=== PATIENT | female | born 1960 | race Caucasian/White ===

== ENCOUNTER → 2016-09-09 | Outpatient (CLI) | payer OTHER | LOC: LAB 14:51 | DX: Z01.419 Encounter for gynecological examination (general) (routine) without abnormal findings (principal) ==

== ENCOUNTER → 2016-09-25 | Outpatient (CLI) | payer OTHER | LOC: MAMMO 13:49 | DX: Z12.31 Encounter for screening mammogram for malignant neoplasm of breast (principal); Z01.419 Encounter for gynecological examination (general) (routine) without abnormal findings | CPT/HCPCS: G0202 ==

== ENCOUNTER → 2018-01-07 | Outpatient (CLI) | payer OTHER | LOC: MAMMO 16:00 | DX: Z12.31 Encounter for screening mammogram for malignant neoplasm of breast (principal) ==

== ENCOUNTER → 2018-02-17 | Outpatient (CLI) | payer OTHER | LOC: RAD 13:00 | DX: R56.9 Unspecified convulsions (principal) ==

== ENCOUNTER → 2019-06-22 | Outpatient (CLI) | payer OTHER ==
[2019-06-22 12:13] LABS: EOS # 0.1 (0.04-0.40); EOS % 1.5 % (1.0-5.0); HEMATOCRIT 39.9 % (37.0-47.0); HEMOGLOBIN 13.7 g/dL (12.5-16.0); LYMPH# 1.5 (1.50-4.00); MEAN CELL VOLUME 92 fl (78-100); MEAN CORPUSCULAR HEMOGLOBIN 32 pg (27-31); MEAN CORPUSCULAR HGB CONC 34 g/dL (33-37); MONO # 0.6 (0.20-0.80); NEU # 3.3 (1.40-6.50); PLATELET COUNT 239 K/mm3 (130-400); RED BLOOD COUNT 4.33 M/mm3 (4.10-5.30); RED CELL DISTRIBUTION WIDTH 11.7 % (11.5-14.5); WHITE BLOOD COUNT 5.5 K/mm3 (4.8-10.8)
[2019-06-22 12:19] LABS: ALBUMIN 4.3 g/dL (3.5-5.0); POTASSIUM 4.1 mmol/L (3.5-5.1)
[2019-06-22 12:20] LABS: CALCIUM 9.3 mg/dL (8.3-10.5)
[2019-06-22 12:21] LABS: TOTAL PROTEIN 7.1 g/dL (6.4-8.3)
[2019-06-22 12:23] LABS: TOTAL BILIRUBIN 0.4 mg/dL (0.2-1.2)
== END ==
LOC: LAB 11:55
PROVIDERS: Family Medicine
DX: Z00.00 Encounter for general adult medical examination without abnormal findings (principal); E78.5 Hyperlipidemia, unspecified

== ENCOUNTER → 2020-07-05 | Outpatient (CLI) | payer OTHER ==
[2020-07-05 15:48] LABS: BASO # 0.1 (0.02-0.10); EOS # 0.1 (0.04-0.40); EOS % 0.6 % (1.0-5.0); HEMATOCRIT 39.9 % (37.0-47.0); HEMOGLOBIN 13.5 g/dL (12.5-16.0); LYMPH# 1.6 (1.50-4.00); MEAN CELL VOLUME 91 fl (78-100); MEAN CORPUSCULAR HEMOGLOBIN 31 pg (27-31); MEAN CORPUSCULAR HGB CONC 34 g/dL (33-37); MEAN PLATELET VOLUME 9.7 fl (7.4-10.4); MONO # 0.7 (0.20-0.80); NEU # 5.5 (1.40-6.50); PLATELET COUNT 271 K/mm3 (130-400); RED BLOOD COUNT 4.38 M/mm3 (4.10-5.30); RED CELL DISTRIBUTION WIDTH 12.2 % (11.5-14.5); WHITE BLOOD COUNT 7.9 K/mm3 (4.8-10.8)
[2020-07-05 15:55] LABS: POTASSIUM 3.6 mmol/L (3.5-5.1)
[2020-07-05 15:56] LABS: ALBUMIN 4.8 g/dL (3.5-5.0)
[2020-07-05 15:57] LABS: CALCIUM 9.7 mg/dL (8.3-10.5)
[2020-07-05 15:58] LABS: TOTAL PROTEIN 7.7 g/dL (6.4-8.3)
[2020-07-05 16:00] LABS: TOTAL BILIRUBIN 0.8 mg/dL (0.2-1.2)
== END ==
LOC: LAB 15:36
PROVIDERS: Family Medicine
DX: Z00.00 Encounter for general adult medical examination without abnormal findings (principal); E78.5 Hyperlipidemia, unspecified

== ENCOUNTER → 2020-07-11 | Outpatient (CLI) | payer OTHER | LOC: MAMMO 14:26 | DX: Z12.31 Encounter for screening mammogram for malignant neoplasm of breast (principal) ==

== ENCOUNTER → 2020-07-29 | Outpatient (CLI) | payer OTHER | LOC: LAB 13:27 | DX: U07.1 COVID-19 (principal) ==

== ENCOUNTER → 2021-03-27 | Outpatient (CLI) | payer OTHER | LOC: RAD 16:19 | DX: M47.812 Spondylosis without myelopathy or radiculopathy, cervical region (principal) ==

== ENCOUNTER → 2021-04-06 | Outpatient (CLI) | payer OTHER ==
[2021-04-06 12:09] LABS: ALBUMIN 4.4 g/dL (3.5-5.0); POTASSIUM 4.5 mmol/L (3.5-5.1)
[2021-04-06 12:10] LABS: CALCIUM 10.2 mg/dL (8.3-10.5)
[2021-04-06 12:12] LABS: TOTAL PROTEIN 7.8 g/dL (6.4-8.3)
[2021-04-06 12:13] LABS: TOTAL BILIRUBIN 0.6 mg/dL (0.2-1.2)
== END ==
LOC: LAB 11:36
PROVIDERS: Internal Medicine Gastroenterology
DX: K76.89 Other specified diseases of liver (principal)

== ENCOUNTER 2021-04-19 10:02 | Outpatient (RCR) | payer OTHER | END 2021-07-18 | disposition home or self-care (01) | LOC: PT | DX: M54.2 Cervicalgia (principal) ==

== ENCOUNTER → 2021-07-02 | Outpatient (CLI) | payer OTHER ==
[2021-07-02 14:16] LABS: BASO # 0.03 K/mm3 (0.02-0.10); EOS # 0.04 K/mm3 (0.04-0.40); EOS % 0.7 % (1.0-5.0); HEMATOCRIT 38.8 % (37.0-47.0); HEMOGLOBIN 13.3 g/dL (12.5-16.0); LYMPH# 1.36 K/mm3 (1.50-4.00); MEAN CELL VOLUME 94 fl (78-100); MEAN CORPUSCULAR HEMOGLOBIN 32 pg (27-31); MEAN CORPUSCULAR HGB CONC 34 g/dL (33-37); MEAN PLATELET VOLUME 9.6 fl (7.4-10.4); NEU # 3.89 K/mm3 (1.40-6.50); PLATELET COUNT 236 K/mm3 (130-400); RED BLOOD COUNT 4.11 M/mm3 (4.10-5.30); RED CELL DISTRIBUTION WIDTH 11.6 % (11.5-14.5); WHITE BLOOD COUNT 5.9 K/mm3 (4.8-10.8)
[2021-07-02 14:27] LABS: ALBUMIN 4.3 g/dL (3.5-5.0); POTASSIUM 3.8 mmol/L (3.5-5.1)
[2021-07-02 14:28] LABS: CALCIUM 9.4 mg/dL (8.3-10.5)
[2021-07-02 14:29] LABS: TOTAL PROTEIN 6.8 g/dL (6.4-8.3)
[2021-07-02 14:31] LABS: TOTAL BILIRUBIN 0.8 mg/dL (0.2-1.2)
== END ==
LOC: LAB 13:54
PROVIDERS: Family Medicine
DX: Z00.00 Encounter for general adult medical examination without abnormal findings (principal); E78.5 Hyperlipidemia, unspecified

== ENCOUNTER → 2021-07-18 | Outpatient (CLI) | payer OTHER | LOC: MAMMO 09:15 → RAD 09:15 → MAMMO 09:32 | DX: R55 Syncope and collapse (principal); R10.32 Left lower quadrant pain | CPT/HCPCS: Q9967 ==

== ENCOUNTER → 2021-09-24 | Outpatient (CLI) | payer OTHER | LOC: RAD 14:14 | DX: S42.251A Displaced fracture of greater tuberosity of right humerus, initial encounter for closed fracture (principal); W10.9XXA Fall (on) (from) unspecified stairs and steps, initial encounter ==

== ENCOUNTER 2021-10-30 13:02 | Outpatient (RCR) | payer OTHER | END 2021-11-08 | disposition home or self-care (01) | LOC: PT | DX: M25.511 Pain in right shoulder (principal) ==

== ENCOUNTER 2021-11-15 13:30 | Outpatient (RCR) | payer OTHER | END 2021-12-08 | disposition home or self-care (01) | LOC: PT | DX: M25.511 Pain in right shoulder (principal) ==

== ENCOUNTER 2021-12-12 15:00 | Outpatient (RCR) | payer OTHER | END 2022-01-08 | disposition still patient (30) | LOC: PT | DX: M25.511 Pain in right shoulder (principal) ==

== ENCOUNTER 2022-01-23 14:30 | Outpatient (RCR) | payer OTHER | END 2022-02-07 | disposition still patient (30) | LOC: PT | DX: M25.511 Pain in right shoulder (principal) ==

== ENCOUNTER → 2023-04-16 | Outpatient (CLI) | payer OTHER ==
[2023-04-16 10:00] LABS: BASO # 0.04 K/mm3 (0.02-0.10); EOS # 0.08 K/mm3 (0.04-0.40); EOS % 1.4 % (1.0-5.0); HEMOGLOBIN 12.7 g/dL (12.5-16.0); LYMPH# 1.44 K/mm3 (1.50-4.00); MEAN CELL VOLUME 94 fl (78-100); MEAN CORPUSCULAR HEMOGLOBIN 32 pg (27-31); MEAN CORPUSCULAR HGB CONC 34 g/dL (33-37); MEAN PLATELET VOLUME 9.7 fl (7.4-10.4); MONO # 0.62 K/mm3 (0.20-0.80); PLATELET COUNT 253 K/mm3 (130-400); RED BLOOD COUNT 3.92 M/mm3 (4.10-5.30); RED CELL DISTRIBUTION WIDTH 11.5 % (11.5-14.5); WHITE BLOOD COUNT 5.7 K/mm3 (4.8-10.8)
[2023-04-16 10:04] LABS: POTASSIUM 4.1 mmol/L (3.5-5.1)
[2023-04-16 10:05] LABS: ALBUMIN 4.2 g/dL (3.4-4.8)
[2023-04-16 10:06] LABS: CALCIUM 8.9 mg/dL (8.3-10.5)
[2023-04-16 10:07] LABS: TOTAL PROTEIN 6.7 g/dL (6.2-8.1)
[2023-04-16 10:09] LABS: TOTAL BILIRUBIN 0.3 mg/dL (0.2-1.2)
== END ==
LOC: LAB 09:46
PROVIDERS: Nurse Practitioner
DX: M85.80 Other specified disorders of bone density and structure, unspecified site (principal)

== ENCOUNTER → 2023-08-07 | Outpatient (CLI) | payer OTHER | LOC: MAMMO 10:30 | DX: Z12.31 Encounter for screening mammogram for malignant neoplasm of breast (principal) ==

== ENCOUNTER 2024-01-21 12:45 | Outpatient (RCR) | payer OTHER | END 2024-02-08 | LOC: PT | DX: M25.561 Pain in right knee (principal) ==

== ENCOUNTER 2024-02-09 08:00 | Outpatient (RCR) | payer OTHER | END 2024-03-10 | LOC: PT | DX: M25.561 Pain in right knee (principal) ==

== ENCOUNTER 2024-03-15 08:00 | Outpatient (RCR) | payer OTHER | END 2024-04-10 | disposition home or self-care (01) | LOC: PT | DX: M25.561 Pain in right knee (principal) ==

== ENCOUNTER → 2024-04-16 | Outpatient (CLI) | payer OTHER ==
[2024-04-16 10:31] LABS: BASO # 0.02 K/mm3 (0.02-0.10); EOS # 0.08 K/mm3 (0.04-0.40); EOS % 1.5 % (1.0-5.0); HEMATOCRIT 39.3 % (37.0-47.0); HEMOGLOBIN 13.6 g/dL (12.5-16.0); LYMPH# 1.42 K/mm3 (1.50-4.00); MEAN CELL VOLUME 95 fl (78-100); MEAN CORPUSCULAR HEMOGLOBIN 33 pg (27-31); MEAN CORPUSCULAR HGB CONC 35 g/dL (33-37); MEAN PLATELET VOLUME 9.5 fl (7.4-10.4); NEU # 3.19 K/mm3 (1.40-6.50); PLATELET COUNT 260 K/mm3 (130-400); RED BLOOD COUNT 4.16 M/mm3 (4.10-5.30); RED CELL DISTRIBUTION WIDTH 11.5 % (11.5-14.5); WHITE BLOOD COUNT 5.3 K/mm3 (4.8-10.8)
[2024-04-16 10:41] LABS: ALBUMIN 4.5 g/dL (3.4-4.8)
[2024-04-16 10:42] LABS: CALCIUM 9.4 mg/dL (8.3-10.5)
[2024-04-16 10:44] LABS: TOTAL PROTEIN 7.2 g/dL (6.2-8.1)
[2024-04-16 10:45] LABS: TOTAL BILIRUBIN 0.6 mg/dL (0.2-1.2)
[2024-04-17 00:23] LABS: FOLLICLE STIMULATING HORMONE 49.7 mIU/mL (()); LUTENIZING HORMONE 20.7 mIU/mL (()); PROGESTERONE 0.2 ng/mL (()); T3 FREE 2.9 pg/mL (1.7-3.7)
== END ==
LOC: LAB 10:16
PROVIDERS: Family Medicine
DX: I10 Essential (primary) hypertension (principal); E78.5 Hyperlipidemia, unspecified; E03.9 Hypothyroidism, unspecified; N91.1 Secondary amenorrhea; E61.1 Iron deficiency; R73.9 Hyperglycemia, unspecified

== ENCOUNTER 2024-05-13 08:01 | Outpatient (RCR) | payer OTHER | END 2024-06-09 14:38 | disposition home or self-care (01) | LOC: PT 08:01 | DX: M25.561 Pain in right knee (principal) ==

== ENCOUNTER → 2024-07-16 | Outpatient (CLI) | payer OTHER | LOC: RAD 08:00 | DX: N28.1 Cyst of kidney, acquired (principal); K76.89 Other specified diseases of liver ==

== ENCOUNTER → 2024-08-09 | Outpatient (CLI) | payer OTHER ==
[2024-08-09 09:10] LABS: BASO # 0.01 K/mm3 (0.02-0.10); EOS # 0.01 K/mm3 (0.04-0.40); EOS % 0.3 % (1.0-5.0); HEMATOCRIT 38.4 % (37.0-47.0); HEMOGLOBIN 13.7 g/dL (12.5-16.0); MEAN CELL VOLUME 93 fl (78-100); MEAN CORPUSCULAR HEMOGLOBIN 33 pg (27-31); MEAN CORPUSCULAR HGB CONC 36 g/dL (33-37); MEAN PLATELET VOLUME 9.7 fl (7.4-10.4); MONO # 0.36 K/mm3 (0.20-0.80); NEU # 2.58 K/mm3 (1.40-6.50); PLATELET COUNT 197 K/mm3 (130-400); RED BLOOD COUNT 4.14 M/mm3 (4.10-5.30); RED CELL DISTRIBUTION WIDTH 11.2 % (11.5-14.5); WHITE BLOOD COUNT 3.8 K/mm3 (4.8-10.8)
[2024-08-09 09:19] LABS: ALBUMIN 4.4 g/dL (3.4-4.8); CALCIUM 9.7 mg/dL (8.3-10.5)
[2024-08-09 09:21] LABS: TOTAL PROTEIN 7.3 g/dL (6.2-8.1)
[2024-08-09 09:23] LABS: TOTAL BILIRUBIN 0.4 mg/dL (0.2-1.2)
== END ==
LOC: MAMMO 08:48
PROVIDERS: Family Medicine
DX: Z12.31 Encounter for screening mammogram for malignant neoplasm of breast (principal); Z13.820 Encounter for screening for osteoporosis; I10 Essential (primary) hypertension; E78.5 Hyperlipidemia, unspecified; R73.9 Hyperglycemia, unspecified

== ENCOUNTER → 2024-10-26 | Outpatient (CLI) | payer OTHER | LOC: LAB 13:12 | DX: A04.8 Other specified bacterial intestinal infections (principal) ==